=== PATIENT | female | born 1960 | race Hispanic/Latino ===

== ENCOUNTER 2018-04-27 19:11 | Emergency (ER) | payer BC ==
[2018-04-27 19:17] VITALS: O2SAT 99
[2018-04-27] MEDS ORDERED: Sodium Chloride 0.9% 1,000 ML IV STA (20:20)
--- NOTE | 2018-04-27 20:58 | ED PDOC ---
HPI: Headache Time Seen by Provider: 04/27/18 20:05 Chief Complaint (Nursing): Headache Chief Complaint (Provider): headache History Per: Patient History/Exam Limitations: no limitations Onset/Duration Of Symptoms: Hrs (noon) Current Symptoms Are (Timing): Still Present Associated Symptoms: Photophobia, Nausea, Vomiting Additional Complaint(s): Polina Segura is a 57 year old female, with no significant past medical history , who presents to the emergency department complaining of a headache associated with vomiting, light sensitivity and nausea onset since noon today. Patient describes a sinus headache and reports similar symptoms in the past due to weather changes. She took x2 Advil liquid gels but with no improvement. She denies any fever, chills, neck pain, chest pain, back pain, abdominal pain or urinary symptoms. No further medical complaints. PMD: Zachary Marie Past Medical History Reviewed: Historical Data, Nursing Documentation, Vital Signs Vital Signs: Last Vital Signs Temp 98.5 F 04/27/18 19:15 Pulse 70 04/27/18 19:15 Resp 16 04/27/18 19:15 BP 192/107 H 04/27/18 19:15 Pulse Ox 99 04/27/18 19:15 - Medical History PMH: No Chronic Diseases - Surgical History Other surgeries: partial hysterectomy - Family History Family History: States: Unknown Family Hx - Allergies Allergies/Adverse Reactions: Allergies Allergy/AdvReac Type Severity Reaction Status Date / Time No Known Allergies Allergy Verified 08/27/15 15:13 Review of Systems ROS Statement: Except As Marked, All Systems Reviewed And Found Negative Constitutional: Negative for: Fever, Chills Cardiovascular: Negative for: Chest Pain Respiratory: Negative for: Shortness of Breath Gastrointestinal: Positive for: Nausea, Vomiting. Negative for: Abdominal Pain Genitourinary Female: Negative for: Dysuria, Frequency Musculoskeletal: Negative for: Neck Pain, Back Pain Neurological: Positive for: Headache (w/ light sensitivity) Physical Exam - Reviewed Nursing Documentation Reviewed: Yes Vital Signs Reviewed: Yes - Physical Exam Appears: Positive for: Non-toxic, No Acute Distress Head Exam: Positive for: ATRAUMATIC, NORMAL INSPECTION, NORMOCEPHALIC Skin: Positive for: Normal Color, Warm, Dry Eye Exam: Positive for: Normal appearance, EOMI, PERRL Neck: Positive for: Painless ROM, Supple Cardiovascular/Chest: Positive for: Regular Rate, Rhythm. Negative for: Murmur Respiratory: Positive for: Normal Breath Sounds. Negative for: Respiratory Distress Gastrointestinal/Abdominal: Positive for: Normal Exam, Soft. Negative for: Tenderness Back: Positive for: Normal Inspection Extremity: Positive for: Normal ROM (upper and lower extremities). Negative for : Deformity, Swelling Neurologic/Psych: Positive for: Alert, Oriented (x3). Negative for: Motor/ Sensory Deficits - Laboratory Results Result Diagrams: 04/27/18 21:30 04/27/18 21:30 - ECG O2 Sat by Pulse Oximetry: 99 (RA) Pulse Ox Interpretation: Normal Medical Decision Making Medical Decision Making: Time: 20:05 Initial Impression: headache Initial plan --BMP --CBC w/ differential --Toradol 30 mg IVP --Sodium Chloride 1,000 ml IV 1,000 mls/hr --Zofran Inj 4 mg IVP --Reevaluation ----- Scribe Attestation: Documented by Lester Pickering, acting as a scribe for Veronica Tran MD. Provider Scribe Attestation: All medical record entries made by the Scribe were at my direction and personally dictated by me. I have reviewed the chart and agree that the record accurately reflects my personal performance of the history, physical exam, medical decision making, and the department course for this patient. I have also personally directed, reviewed, and agree with the discharge instructions and disposition. patient is feeling better after IV fluids. will discharge. Disposition - Clinical Impression Clinical Impression: Headache - Patient ED Disposition Is Patient to be Admitted: No Doctor Will See Patient In The: Office Counseled Patient/Family Regarding: Diagnosis, Need For Followup - Disposition Referrals: Zachary Marie MD [Staff Provider] - [email or web address] [place] [Outside] Disposition: Routine/Home Disposition Time: 22:39 Condition: IMPROVED Instructions: Headache, Adult Forms: [facility] (Hebrew) - POA Present On Arrival: None
[2018-04-27 21:55] LABS: BASO % 0.3 % (0.0-2.0); EOS # 0.2 K/uL (0.0-0.7); EOS % 2.4 % (0.0-4.0); HEMOGLOBIN 14.1 g/dL (12.0-16.0); LYMPH # 0.9 K/uL (1.0-4.3); LYMPH % 9.7 % (20.0-40.0); MEAN CELL VOLUME 89.9 fl (81.0-99.0); MEAN CORPUSCULAR HEMOGLOBIN 29.6 pg (27.0-31.0); MONO # 0.4 K/uL (0.0-0.8); NEUT % 83.6 % (50.0-75.0); PLATELET COUNT 189 K/uL (130-400); RBC 4.77 Mil/uL (3.80-5.20); RED CELL DISTRIBUTION WIDTH 13.7 % (11.5-14.5); WHITE BLOOD COUNT 9.6 K/uL (4.8-10.8)
[2018-04-27 21:58] VITALS: RESP 18
[2018-04-27 22:04] LABS: BLOOD UREA NITROGEN 14 mg/dl (7-17); CALCIUM 9.3 mg/dL (8.4-10.2); GFR NON-AFRICAN AMERICAN > 60
[2018-04-27 22:54] LABS: BANDS 3 % (0-2); EOSINOPHIL 2 % (0-7); LYMPHOCYTE 12 % (20-50); MONOCYTE 5 % (0-10); NEUTROPHIL 78 % (42-75); PLATELET ESTIMATE NORMAL (NORMAL); TOTAL CELLS COUNTED 100
[2018-04-27 22:55] LABS: TOXIC GRANULATION PRESENT
[2018-04-28 00:03] VITALS: BP 160/89; PULSE 78; TEMP 98.2
== END 2018-04-28 00:03 | disposition home or self-care (01) ==
LOC: H.ER 19:11
DX: R51 Headache (principal)
CPT/HCPCS: 80048; 85025; 96374; 96375; 99284; J1885; J2405; J7030

== ENCOUNTER 2018-09-14 13:21 | Emergency (ER) | payer BC ==
[2018-09-14] MEDS ORDERED: Sodium Chloride 0.9% 1,000 ML IV STA (14:28)
--- NOTE | 2018-09-14 14:34 | ED PDOC ---
HPI: Headache Time Seen by Provider: 09/14/18 13:50 Chief Complaint (Nursing): Headache Chief Complaint (Provider): Migraines History Per: Patient History/Exam Limitations: no limitations Onset/Duration Of Symptoms: Hrs (since 08:00) Current Symptoms Are (Timing): Still Present Associated Symptoms: Photophobia. denies: Blurred Vision Additional Complaint(s): 58 year old female, with a past medical history of migraines which normally present around seasonal changes, presents with symptoms typical of known migraines with headache, nausea, and light sensitivity since 08:00 this morning. Patient reports she took Motrin this morning without relief. She denies change in vision, weakness, change in smell, change in taste, or change in medication coordinator rdination. She states she has seen neurology in the past and has been given prophylactic medications and baby aspirin but has not taken it recently. PMD: Zachary Aaron Past Medical History Reviewed: Historical Data, Nursing Documentation, Vital Signs Vital Signs: Last Vital Signs Temp 98 F 09/14/18 13:33 Pulse 79 09/14/18 13:33 Resp 14 09/14/18 13:33 BP 170/100 H 09/14/18 13:33 Pulse Ox 96 09/14/18 13:33 - Medical History PMH: Migraine - Surgical History Other surgeries: Partial hysterectomy - Family History Family History: States: Unknown Family Hx - Home Medications Home Medications: Ambulatory Orders Medication Instructions Recorded No Known Home Med 04/27/18 - Allergies Allergies/Adverse Reactions: Allergies Allergy/AdvReac Type Severity Reaction Status Date / Time No Known Allergies Allergy Verified 09/14/18 13:33 Review of Systems ROS Statement: Except As Marked, All Systems Reviewed And Found Negative Constitutional: Negative for: Fever Respiratory: Negative for: Cough Gastrointestinal: Positive for: Nausea. Negative for: Abdominal Pain Musculoskeletal: Negative for: Neck Pain Neurological: Positive for: Headache. Negative for: Weakness, Numbness, Dizziness Physical Exam - Reviewed Nursing Documentation Reviewed: Yes Vital Signs Reviewed: Yes - Physical Exam Appears: Positive for: Non-toxic, No Acute Distress Head Exam: Positive for: ATRAUMATIC, NORMOCEPHALIC Skin: Positive for: Normal Color, Warm, Dry ENT: Positive for: Normal ENT Inspection, Pharynx Is (normal), TM Is/Are (normal). Negative for: Pharyngeal Erythema Neck: Positive for: Normal, Painless ROM Cardiovascular/Chest: Positive for: Regular Rate, Rhythm. Negative for: Chest Non Tender Respiratory: Positive for: Normal Breath Sounds. Negative for: Wheezing, Respiratory Distress Gastrointestinal/Abdominal: Positive for: Normal Exam, Soft. Negative for: Tenderness Extremity: Positive for: Normal ROM. Negative for: Pedal Edema - ECG O2 Sat by Pulse Oximetry: 96 (RA) Pulse Ox Interpretation: Normal Medical Decision Making Medical Decision Making: Initial Impression: Migraines Prior charts from ED visits reviewed, similar presentation. Initial Plan: Migraines cocktail with IV fluid ordered and will reevaluate patient. Patient endorsed to Dr. Cortes 3p pending re-eval and dispo. Scribe Attestation: Documented by Saeid Thomason acting as a scribe for Rolando Small III, DO. Provider Scribe Attestation: All medical record entries made by the Scribe were at my direction and personally dictated by me. I have reviewed the chart and agree that the record accurately reflects my personal performance of the history, physical exam, medical decision making, and the department course for this patient. I have also personally directed, reviewed, and agree with the discharge instructions and disposition. Disposition - Clinical Impression Clinical Impression: Migraine headache - Patient ED Disposition Is Patient to be Admitted: Transfer of Care - Disposition Disposition: Transfer of Care Disposition Time: 14:59 Condition: STABLE Forms: [employer] (Upper Sorbian) Patient Signed Over To: Kenneth Cortes
[2018-09-14 15:17] LABS: BASO % 0.2 % (0.0-2.0); EOS % 0.4 % (0.0-4.0); HEMOGLOBIN 14.2 g/dL (12.0-16.0); LYMPH # 0.8 K/uL (1.0-4.3); LYMPH % 9.3 % (20.0-40.0); MEAN CELL VOLUME 90.5 fl (81.0-99.0); MEAN CORPUSCULAR HEMOGLOBIN 29.6 pg (27.0-31.0); MEAN CORPUSCULAR HGB CONC 32.7 g/dL (33.0-37.0); MEAN PLATELET VOLUME 7.5 fl (7.2-11.7); MONO # 0.2 K/uL (0.0-0.8); MONO % 1.8 % (0.0-10.0); NEUT % 88.3 % (50.0-75.0); NRBC % 0.1 % (0.0-0.0); PLATELET COUNT 174 K/uL (130-400); RBC 4.81 Mil/uL (3.80-5.20); RED CELL DISTRIBUTION WIDTH 13.1 % (11.5-14.5); WHITE BLOOD COUNT 9.1 K/uL (4.8-10.8)
[2018-09-14 15:22] LABS: ALB/GLOB RATIO 1.2 (1.0-2.1); ALBUMIN 4.7 g/dL (3.5-5.0); ALT/SGPT 30 U/L (9-52); AST/SGOT 30 U/L (14-36); BLOOD UREA NITROGEN 12 mg/dl (7-17); CALCIUM 9.3 mg/dL (8.4-10.2); GFR NON-AFRICAN AMERICAN > 60
--- NOTE | 2018-09-14 15:30 | ED PDOC ---
- Laboratory Results Result Diagrams: 09/14/18 15:07 18 15:07 - ECG O2 Sat by Pulse Oximetry: 96 (RA) - Progress Re-evaluation Time: 16:53 Condition: Improved Medical Decision Making Medical Decision Making: Time: 1500 -Patient endorsed to provider by Dr. Small pending re-evaluation for relief of headache. Scribe Attestation: Documented by Ashley Kemp, acting as a scribe for Dr. Kenneth oCrtes . Provider Scribe Attestation: All medical record entries made by the Scribe were at my direction and personally dictated by me. I have reviewed the chart and agree that the record accurately reflects my personal performance of the history, physical exam, medical decision making, and the department course for this patient. I have also personally directed, reviewed, and agree with the discharge instructions and disposition. Disposition - Clinical Impression Clinical Impression: Migraine headache - POA Present On Arrival: None - Disposition Referrals: Roberto Valenzuela MD [Medical Doctor] - Disposition: Routine/Home Disposition Time: 16:53 Condition: STABLE Prescriptions: Ibuprofen [Motrin] 600 mg PO Q8 #20 tab Instructions: Migraine Headache (DC) Forms: [employer] (Spanish)
[2018-09-14 16:47] LABS: LYMPHOCYTE 5 % (20-50); MONOCYTE 1 % (0-10); NEUTROPHIL 94 % (42-75); PLATELET ESTIMATE NORMAL (NORMAL); TOTAL CELLS COUNTED 100
[2018-09-14 16:48] LABS: ANISOCYTOSIS SLIGHT; OVALOCYTES SLIGHT; POIKILOCYTOSIS SLIGHT
[2018-09-14 17:16] VITALS: BP 140/95; PULSE 64; RESP 19; TEMP 98.7; O2SAT 100
--- NOTE | 2018-09-15 15:06 | CARD ---
APPROVED REPORT Date of service: 09/14/2018 EKG Measurement Heart [id number] <Conclusion> Normal sinus rhythm Left ventricular hypertrophy Nonspecific T wave abnormality Abnormal ECG
== END 2018-09-14 17:19 | disposition home or self-care (01) ==
LOC: H.ER 13:21
DX: G43.909 Migraine, unspecified, not intractable, without status migrainosus (principal)
CPT/HCPCS: 80053; 84484; 85025; 93005; 96374; 99283; J1885; J2765; J7030